=== PATIENT | female | born 1995 | race Caucasian/White ===

== ENCOUNTER 2024-03-21 21:22 | Inpatient (IN) | payer OTHER ==
[2024-03-21 21:45] VITALS: BMI 25.0
[2024-03-21] MEDS ORDERED: BISMUTH SUBSALICYLATE 524 MG/30 ML PO PRN (22:33)
[2024-03-21] MEDS ORDERED: IBUPROFEN 400 MG TABLET (FP) PO PRN (22:33)
[2024-03-21] MEDS ORDERED: DICYCLOMINE HCL 10 MG CAPSULE PO PRN (22:33)
[2024-03-21] MEDS ORDERED: ACETAMINOPHEN 325 MG TABLET (FP) PO PRN (22:33)
[2024-03-21] MEDS ORDERED: POLYETHYLENE GLYCOL (HEALTHYLAX) 3350 17 GM PACKET PO PRN (22:33)
[2024-03-21] MEDS ORDERED: LOPERAMIDE HCL 2 MG CAPSULE PO PRN (22:33)
[2024-03-21] MEDS ORDERED: BENZONATATE 200 MG CAPSULE PO PRN (22:33)
[2024-03-21] MEDS ORDERED: MAGNESIUM HYDROX 2400MG/30ML ORAL SUSPENSION 30 ML CUP PO PRN (22:33)
[2024-03-21] MEDS ORDERED: BENZOCAINE/MENTHOL (CHLORASEPTIC ) LOZENGE MM PRN (22:33)
[2024-03-21] MEDS ORDERED: MAG HYDROX/AL HYDROX/SIMETH 30 ML UNIT-DOSE CUP PO PRN (22:33)
[2024-03-21] MEDS ORDERED: guaiFENesin 600 MG TABLET.ER (FP) PO PRN (22:33)
[2024-03-21] MEDS ORDERED: NALOXONE (NARCAN) HCL 4 MG/0.1 ML SPRAY NS PRN (22:33)
[2024-03-21] MEDS ORDERED: diazePAM 5 MG TABLET ONE (23:22)
[2024-03-21] MEDS ORDERED: methaDONE HCL 10 MG TABLET (FOR DETOX USE ONLY) ONE (23:22)
[2024-03-21] MEDS ORDERED: ONDANSETRON *ODT* 4 MG TABLET ONE (23:22)
[2024-03-21] MEDS ORDERED: IBUPROFEN 600 MG TABLET (FP) PO ONE (23:23)
[2024-03-21] MEDS: diazePAM 5 MG TABLET PO SCH (23:40)
[2024-03-21] MEDS: ONDANSETRON *ODT* 4 MG TABLET SL PRN (23:40)
[2024-03-21] MEDS: IBUPROFEN 600 MG TABLET (FP) PO PRN (23:40)
[2024-03-21] MEDS: methaDONE HCL 10 MG TABLET PO ONE (23:42)
[2024-03-22] MEDS: NICOTINE POLACRILEX 4 MG GUM BUC PRN (07:01)
[2024-03-22] MEDS ORDERED: methaDONE HCL 10 MG TABLET PO PRN (08:40)
[2024-03-22] MEDS: methaDONE HCL 40 MG DISPERSABLE TABLET PO ONE (08:49)
[2024-03-22] MEDS: PRENATAL VITAMINS W/ FOLIC ACID TABLET (FP) PO SCH (09:17)
[2024-03-22] MEDS: QUEtiapine FUMARATE 100 MG TABLET (FP) PO SCH (09:17)
[2024-03-22] MEDS: NICOTINE 21 MG/24 HOURS TOPICAL PATCH TD SCH (09:17)
[2024-03-22] MEDS: levETIRAcetam 500 MG TABLET (FP) PO SCH (09:17)
[2024-03-22 11:15] LABS: CHLORIDE 106 mmol/L (98-107); HEMATOCRIT 39.5 % (32.4-45.2); HEMOGLOBIN 12.5 GM/dL (10.7-15.3); MCH 25.3 pg (25.7-33.7); MCHC 31.6 g/dl (32.0-36.0); MEAN PLT VOLUME 8.8 fl (7.5-11.1); PLATELET COUNT 382 10^3/uL (134-434); POTASSIUM 4.2 mmol/L (3.5-5.1); RBC 4.93 M/mm3 (3.60-5.2); SODIUM 140 mmol/L (136-145); WHITE BLOOD COUNT 7.6 K/mm3 (4.0-10.0)
[2024-03-22 11:17] LABS: CALCIUM 9.4 mg/dL (8.5-10.1)
[2024-03-22 11:18] LABS: ALBUMIN 3.8 g/dl (3.4-5.0); ANION GAP 6 mmol/L (4-13); BLOOD UREA NITROGEN 12.8 mg/dL (7-18); CO2 29 mmol/L (21-32); GLUCOSE,RANDOM 82 mg/dL (74-106)
[2024-03-22 11:20] LABS: SGPT/ALT 21 U/L (13-61)
[2024-03-22 11:21] LABS: CREATININE 0.7 mg/dL (0.55-1.3); SGOT/AST 13 U/L (15-37)
[2024-03-22 11:22] LABS: BILIRUBIN,TOTAL 0.3 mg/dL (0.2-1); TOT PROT 8.6 g/dl (6.4-8.2)
[2024-03-22 11:23] LABS: ALK PHOS 80 U/L (45-117)
[2024-03-22] MEDS: MELATONIN 5 MG TABLETS PO SCH (22:26)
[2024-03-22] MEDS: THIAMINE 100 MG TABLET PO SCH (23:24)
[2024-03-22] MEDS: METHOCARBAMOL 500 MG TABLET PO PRN (23:30)
[2024-03-23] MEDS: diazePAM 5 MG TABLET PO SCH (05:31)
[2024-03-23] MEDS: methaDONE 40 MG, methaDONE 10 MG PO ONE (09:20)
[2024-03-23] MEDS ORDERED: methaDONE HCL 40 MG DISPERSABLE TABLET PO ONE (10:00)
[2024-03-23] MEDS ORDERED: methaDONE 40 MG, methaDONE 20 MG PO ONE (10:00)
[2024-03-23] MEDS: hydrOXYzine PAMOATE 25 MG CAPSULE (FP) PO PRN (11:29)
[2024-03-23] MEDS: diazePAM 5 MG TABLET PO PRN (11:31)
[2024-03-23] MEDS ORDERED: cloNIDine HCL 0.1 MG TABLET PO PRN (13:06)
[2024-03-23] MEDS ORDERED: METHOCARBAMOL 750 MG TABLET PO PRN (13:09)
[2024-03-23] MEDS: SULFAMETHOXAZOLE/TRIMETHOPRIM 800MG/160MG D.S. TABLET PO SCH (13:33)
[2024-03-23] MEDS: METHOCARBAMOL 500 MG TABLET PO PRN (22:52)
[2024-03-24] MEDS: diazePAM 5 MG TABLET PO SCH (06:23)
[2024-03-24] MEDS: methaDONE 40 MG, methaDONE 20 MG PO ONE (09:52)
[2024-03-24] MEDS ORDERED: methaDONE HCL 40 MG DISPERSABLE TABLET PO ONE (10:00)
[2024-03-24] MEDS ORDERED: methaDONE 40 MG, methaDONE 30 MG PO ONE (10:00)
[2024-03-25] MEDS: diazePAM 5 MG TABLET PO ONE (06:11)
[2024-03-25] MEDS: methaDONE 40 MG, methaDONE 30 MG PO ONE (09:07)
[2024-03-25] MEDS: NALOXONE (NYS OPIOID OVERDOSE PROGRAM) 4 MG/0.1 ML SPRAY NS SCH (09:30)
[2024-03-25 09:40] VITALS: BP 127/77; PULSE 95; RESP 18; TEMP 97.6
[2024-03-25] MEDS ORDERED: methaDONE HCL 40 MG DISPERSABLE TABLET PO ONE ×2 (10:00)
[2024-03-26] MEDS ORDERED: methaDONE HCL 10 MG TABLET PO SCH (06:00)
[2024-03-26] MEDS ORDERED: methaDONE 40 MG, methaDONE 30 MG PO SCH (06:00)
== END 2024-03-25 13:36 | disposition home or self-care (01) | DRG 773 ==
LOC: YASAS 21:22 → Y6N 22:49
PROVIDERS: ADMIT Allergy & Immunology; ATTEND Surgery
PROC: HZ2ZZZZ Detoxification Services for Substance Abuse Treatment (ICD-10-PCS; principal; 2024-03-21)
DX: F10.230 Alcohol dependence with withdrawal, uncomplicated (principal); F13.230 Sedative, hypnotic or anxiolytic dependence with withdrawal, uncomplicated; F11.20 Opioid dependence, uncomplicated; F16.10 Hallucinogen abuse, uncomplicated; F17.210 Nicotine dependence, cigarettes, uncomplicated; F19.280 Other psychoactive substance dependence with psychoactive substance-induced anxiety disorder; F19.282 Other psychoactive substance dependence with psychoactive substance-induced sleep disorder; F19.24 Other psychoactive substance dependence with psychoactive substance-induced mood disorder; F33.1 Major depressive disorder, recurrent, moderate; F39 Unspecified mood [affective] disorder; F43.10 Post-traumatic stress disorder, unspecified; F60.3 Borderline personality disorder; D64.9 Anemia, unspecified; G40.89 Other seizures; L02.414 Cutaneous abscess of left upper limb; M32.9 Systemic lupus erythematosus, unspecified; Z62.810 Personal history of physical and sexual abuse in childhood
CPT/HCPCS: 36415; 80053; 80307; 85027; 86780; 93005; 93010; Q0162